=== PATIENT | female | born 1960 | race Caucasian/White ===

== ENCOUNTER 2017-09-27 18:17 | Emergency (ER) | payer BC ==
--- NOTE | 2017-09-27 19:31 | EDM.PDOC ---
ED HPI GENERAL MEDICAL PROBLEM - General Chief Complaint: General Stated Complaint: UNK Time Seen by Provider: 09/27/17 19:22 - History of Present Illness INITIAL COMMENTS - FREE TEXT/NARRATIVE: HISTORY AND PHYSICAL: History of present illness: Patient's a 57 year old female with history of depression was recently started on an MAO inhibitor in the end of July she states she has had some generalized weakness as well as muscle weakness she states she's been not thinking quite as clearly in that she did discuss this with her prescribing physician felt that this may be related to muscle wasting. She denies numbness weakness chest pain shortness breath or other concern states until these recent events she was doing very well on the medication. Review of systems: As per history of present illness and below otherwise all systems reviewed and negative. Past medical history: As per history of present illness and as reviewed below otherwise noncontributory. Surgical history: As per history of present illness and as reviewed below otherwise noncontributory. Social history: No reported history of drug or alcohol abuse. Family history: As per history of present illness and as reviewed below otherwise noncontributory. Physical exam: HEENT: Atraumatic, normocephalic, pupils reactive, negative for conjunctival pallor or scleral icterus, mucous membranes moist, throat clear, neck supple, nontender, trachea midline. Lungs: Clear to auscultation, breath sounds equal bilaterally, chest nontender. Heart: S1S2, regular, negative for clicks, rubs, or JVD. Abdomen: Soft, nondistended, nontender. Negative for masses or hepatosplenomegaly. Negative for costovertebral tenderness. Pelvis: Stable nontender. Genitourinary: Deferred. Rectal: Deferred. Extremities: Atraumatic, negative for cords or calf pain. Neurovascular unremarkable. Neuro: Awake, alert, oriented. Cranial nerves II through XII unremarkable. Cerebellum unremarkable. Motor and sensory unremarkable throughout. Exam nonfocal. Diagnostics: CBC CMP troponin CPK ET INR chest x-ray EKG CT brain Therapeutics: Saline 1 L bolus Impression: #1 generalized weakness #2 history of depression #3 rule out drug reaction Definitive disposition and diagnosis as appropriate pending reevaluation and review of above. - Related Data Allergies Allergy/AdvReac Type Severity Reaction Status Date / Time codeine Allergy Anaphylactic Verified 09/27/17 18:52 Shock morphine Allergy Cannot Verified 09/27/17 18:52 Remember Home Meds: Home Meds ALPRAZolam [Xanax] 2 mg PO BEDTIME 09/27/17 [History] Celecoxib [CeleBREX] 200 mg PO DAILY 09/27/17 [History] Levothyroxine 75 mcg PO BEDTIME 09/27/17 [History] Phenelzine [Nardil] 15 mg PO QID 09/27/17 [History] lamoTRIgine [Lamictal] 25 mg PO BID 09/27/17 [History] Past Medical History [employer] History: Reports: Psychiatric History: Reports: Bipolar, Psychosis - Infectious Disease History Infectious Disease History: Reports: Chicken Pox - Past Surgical History Female Surgical History: Reports: Hysterectomy Endocrine Surgical History: Reports: Thyroidectomy Social & Family History - Tobacco Use Smoking Status *Q: Never Smoker - Caffeine Use Caffeine Use: Reports: None - Recreational Drug Use Recreational Drug Use: No ED ROS GENERAL - Review of Systems Review Of Systems: ROS reveals no pertinent complaints other than HPI. ED EXAM, GENERAL - Physical Exam Exam: See Below (The dictation) Course - Vital Signs Last Recorded V/S: Last Vital Signs Temp 36.7 C 09/27/17 18:44 Pulse 61 09/27/17 18:44 Resp 16 09/27/17 18:44 BP 126/58 L 09/27/17 18:44 Pulse Ox 98 09/27/17 18:44 - Orders/Labs/Meds Orders: Active Orders 24 hr Category Date Time Status EKG Documentation Completion [RC] STAT Care 09/27/17 19:26 Active Labs: Laboratory Tests 09/27/17 09/27/17 09/27/17 Range/Units 19:30 19:30 19:30 WBC 7.59 (4.0-11.0) K/uL RBC 4.02 L (4.30-5.90) M/uL Hgb 11.8 L (12.0-16.0) g/dL Hct 36.6 (36.0-46.0) % MCV 91.0 (80.0-98.0) fL MCH 29.4 (27.0-32.0) pg MCHC 32.2 (31.0-37.0) g/dL RDW Std Deviation 43.1 (28.0-62.0) fl RDW Coeff of Beck 13 (11.0-15.0) % Plt Count 232 (150-400) K/uL MPV 10.40 (7.40-12.00) fL Neut % (Auto) 62.5 (48.0-80.0) % Lymph % (Auto) 29.0 (16.0-40.0) % [place] % (Auto) 6.6 (0.0-15.0) % Eos % (Auto) 1.4 (0.0-7.0) % Baso % (Auto) 0.5 (0.0-1.5) % Neut # (Auto) 4.7 (1.4-5.7) K/uL Lymph # (Auto) 2.2 (0.6-2.4) K/uL [place] # (Auto) 0.5 (0.0-0.8) K/uL Eos # (Auto) 0.1 (0.0-0.7) K/uL Baso # (Auto) 0.0 (0.0-0.1) K/uL Nucleated RBC % 0.0 /100WBC Nucleated RBCs # 0 K/uL INR 1.02 Sodium 141 (136-145) mmol/L Potassium 4.1 (3.5-5.1) mmol/L Chloride 105 (98-107) mmol/L Carbon Dioxide 29.2 (21.0-32.0) mmol/L BUN 24 H (7.0-18.0) mg/dL Creatinine 1.0 (0.6-1.0) mg/dL Est Cr Clr Drug Dosing 61.09 mL/min Estimated GFR (MDRD) 57.4 ml/min Glucose 105 (74-106) mg/dL Calcium 9.2 (8.5-10.1) mg/dL Total Bilirubin 0.3 (0.2-1.0) mg/dL AST 17 (15-37) IU/L ALT 10 L (14-63) IU/L Alkaline Phosphatase 75 (46-116) U/L Creatine Kinase 79 (26-308) U/L Troponin I < 0.050 (0.000-0.056) ng/mL Total Protein 7.4 (6.4-8.2) g/dL Albumin 4.0 (3.4-5.0) g/dL Globulin 3.4 (2.0-3.5) g/dL Albumin/Globulin Ratio 1.2 L (1.3-2.8) TSH 3rd Generation 1.66 (0.36-3.74) uIU/mL Meds: Medications Discontinued Medications Generic Name Dose Route Start Last Admin Trade Name Freq PRN Reason Stop Dose Admin Sodium Chloride 1,000 mls @ 999 mls/hr 09/27/17 19:26 Normal Saline IV 09/27/17 20:26 STAT ONE Departure - Departure Time of Disposition: 22:30 Disposition: Against Medical Advice 07 Condition: Good Clinical Impression: Encounter for medical screening examination - Discharge Information Referrals: PCP,None [Primary Care Provider] - Forms: ED Department Discharge - My Orders Last 24 Hours: My Active Orders 09/27/17 19:26 EKG Documentation Completion [RC] STAT - Assessment/Plan Last 24 Hours: My Active Orders 09/27/17 19:26 EKG Documentation Completion [RC] STAT
[2017-09-27 20:20] LABS: CHLORIDE,CL 105 mmol/L (98-107); SODIUM,NA 141 mmol/L (136-145)
[2017-09-27] MEDS: Sodium Chloride 0.9% 1,000 ML IV ONE (22:34)
== END 2017-09-27 20:30 | disposition left against medical advice (07) ==
LOC: EDSEX 18:17 → MW.ED 18:17
DX: R53.1 Weakness (principal); F32.9 Major depressive disorder, single episode, unspecified; Z88.5 Allergy status to narcotic agent
CPT/HCPCS: 36415; 80053; 82550; 84443; 84484; 85025; 85610; 93005; 99283; 99285-25